=== PATIENT | male | born 1950 | race Caucasian/White ===

== ENCOUNTER 2017-01-28 03:22 | Emergency (ER) | payer MEDICARE, BC ==
[2017-01-28] MEDS ORDERED: Ketorolac 30 MG/ML SDV IVPUSH ONE (03:54)
[2017-01-28] MEDS ORDERED: HYDROmorphone 2 MG/ML SDV IVPUSH ONE (03:54)
[2017-01-28] MEDS ORDERED: Ondansetron 4 MG/2 ML SDV IVPUSH ONE (03:55)
[2017-01-28 04:52] VITALS: BP 126/68
[2017-01-28] MEDS ORDERED: Sodium Chloride 0.9% 1,000 ML IV ONE (05:18)
[2017-01-28] MEDS ORDERED: HYDROmorphone 2 MG/ML SDV IM ONE (05:42)
--- NOTE | 2017-01-28 06:22 | ER ---
DATE SEEN: 01/28/2017 CHIEF COMPLAINT: Abdominal pain. HISTORY OF PRESENT ILLNESS: This is a 66-year-old male with left-sided flank pain, sudden onset around 0115 hours this morning. Pain is severe with no radiation. Associated with some nausea. It is on the left foot. REVIEW OF SYSTEMS: No fever, hematuria. MEDICATIONS: Terazosin. PAST MEDICAL HISTORY: BPH. ALLERGIES: Penicillin. PHYSICAL EXAMINATION: VITAL SIGNS: Blood pressure is normal. Temperature is 97.4. ABDOMEN: Soft with no tenderness to palpation. MENTAL STATUS: Alert. LABORATORY DATA: UA showed a specific gravity of 0.31323. Creatinine was normal. Potassium 3.4. CT abdomen and pelvis revealed a 3 mm calculus in the distal left ureter. There was also a cystic pancreatic lesion, some hepatic cysts and some lung nodules my. FINAL IMPRESSION: Ureteric calculi. PLAN: 1-2 mg of Dilaudid, 15-30 mg of ketorolac IV, normal saline. He will go home on hydrocodone 1 tablet every 6 hours. Please note that he was inadvertently given 60 mg of Toradol IV. I will have him come see me in the office on Tuesday for followup in which time I will repeat his kidney function and discuss his other findings and the CT scan. TIME SEEN: 0530 hours. /[id number] JAY/NEVAEH
[2017-01-28] MEDS ORDERED: Acetaminophen/HYDROcodone 325-5 MG Tab PO ONE (06:35)
== END 2017-01-28 07:00 | disposition home or self-care (01) ==
LOC: FB.ED 03:22
DX: N13.30 Unspecified hydronephrosis (principal); N20.1 Calculus of ureter; Z88.0 Allergy status to penicillin
CPT/HCPCS: 36415; 74176; 80053; 81001; 85025; 96361; 96372; 96374; 96375; 99283; 99284; A9270; J1170; J1885; J2405; J7040; 96376